=== PATIENT | male | born 1950 | race Two or more races ===

== ENCOUNTER → 2020-05-05 | Outpatient (CLI) | payer BC, MEDICARE ==
--- NOTE | 2020-05-05 11:54 | KCIC ---
EXAM: XR CERVICAL SPINE 2-3V 05/05/2020 9:57 AM CLINICAL INDICATION: Acute torticollis, neck pain since yesterday COMPARISON: None TECHNIQUE: AP, lateral, swimmer's, and odontoid views of the cervical spine FINDINGS: No acute fracture. Alignment is normal. There is straightening of lordosis. There is moder ate disc space narrowing at C5-C6 and C6-C7. There is mild multilevel facet arthrosis. Dens is intact . Prevertebral soft tissue is normal. Median sternotomy wires are noted. IMPRESSION: Moderate degenerative disc disease at C5-C6 and C6-C7. Electronically signed by: Viviane Rios MD (05/05/2020 11:52 AM) [id number]
== END ==
LOC: KCIC 09:54
PROVIDERS: ATTEND Family Medicine
DX: M47.812 Spondylosis without myelopathy or radiculopathy, cervical region (principal); M43.6 Torticollis; M50.30 Other cervical disc degeneration, unspecified cervical region
CPT/HCPCS: 72040